=== PATIENT | female | born 1960 ===

== ENCOUNTER 2017-05-12 20:12 | Emergency (ER) | payer OTHER ==
[~2017-05-12] VITALS: Ht 172.7 cm; Wt 75.0 kg
[2017-05-12 20:15] VITALS: BP 162/74; PULSE 88; RESP 16; TEMP 98.9; O2SAT 98
--- NOTE | 2017-05-12 20:51 | PD ---
Physical Exam Time Seen by Provider: 20:50 Narrative 56 y/o female here for evaluation of nausea, vomiting, worse with meals, for 2.5 months, worse today. Generalized stomach "cramps" intermittently for 2.5 months as well. Vital signs reviewed. Seen at triage desk. Awaiting bed placement. Data Data Last Documented VS Vital Signs Date Time Temp Pulse Resp B/P Pulse Ox O2 Delivery O2 Flow Rate FiO2 05/12/17 20:15 98.9 88 16 162/74 98 MDM Medical Record Reviewed: Yes Supervised Visit with ALLISON: Jamir Manzo May 12, 2017 20:51
[2017-05-12] MEDS ORDERED: ATOR10TA15 PO (22:12)
[2017-05-12] MEDS ORDERED: LISI20TA3 PO (22:12)
[2017-05-12] MEDS ORDERED: SULF1TAB23 PO (22:12)
[2017-05-12] MEDS ORDERED: PROZ40CA PO (22:13)
--- NOTE | 2017-05-12 22:19 | PD ---
HPI Chief Complaint: GI Complaint Time Seen by Provider: 22:01 Travel History International Travel<30 days: No Contact w/Intl Traveler<30days: No Traveled to known affect area: No History of Present Illness HPI Patient is a 56-year-old female presents emergency Department with an evolving abdominal pain history over the past 2 and half months. Patient states initially started with some nausea vomiting and diarrhea and she thought she would get over it and tough it out. Then she stated she had a kidney stone which did not require any intervention and she was fairly certain this is what it was so she never went to the hospital for this either. She states that now over the past week her nausea has been getting significantly worse and she thinks something is wrong. She states that she has a history of diverticulitis and hemicolectomy and wants to make sure nothing bad is starting to happen again. She denies any fever. Does endorse some nonbloody nonbilious vomiting as well as some non-bloody and non-melenous loose stool. PFSH Past Medical History Diminished Hearing: No Hypertension: Yes Kidney Stones: Yes ?: Not Tubal Ligation: Yes Past Surgical History Abdominal Surgery: Yes (BOWEL OBS. PARTIAL REMOVAL OF COLON) Hysterectomy: Yes (PARTIAL) Social History Alcohol Use: Yes ([facility]) Tobacco Use: No (QUIT IN 1983) Substance Use: No Allergies-Medications (Allergen,Severity, Reaction): Coded Allergies: Cipro (Verified Allergy, Intermediate, 05/12/17) Macrobid (Verified Allergy, Intermediate, 05/12/17) Iodine (Verified Allergy, Unknown, 05/12/17) Reported Meds & Prescriptions Reported Meds & Active Scripts Active Zofran Odt (Ondansetron Odt) 4 Mg Tab 4 Mg SL Q6HR PRN Reported Prozac (Fluoxetine HCl) 40 Mg Cap 40 Mg PO DAILY Atorvastatin (Atorvastatin Calcium) 10 Mg Tab 10 Mg PO HS Lisinopril-Hctz 20-25 Mg Tab 1 Tab PO DAILY Sulfamethoxazole-Trimethoprim 800-160 Mg Tab 1 Tab PO BID Review of Systems Except as stated in HPI: all other systems reviewed are Neg Physical Exam Narrative GENERAL: Well-developed well-nourished, no obvious distress. SKIN: Focused skin assessment warm/dry. HEAD: Atraumatic. Normocephalic. EYES: Pupils equal and round. No scleral icterus. No injection or drainage. ENT: No nasal bleeding or discharge. Mucous membranes pink and moist. NECK: Trachea midline. No JVD. CARDIOVASCULAR: Regular rate and rhythm. No murmur appreciated. RESPIRATORY: No accessory muscle use. Clear to auscultation. Breath sounds equal bilaterally. GASTROINTESTINAL: Abdomen soft, non-tender, nondistended. Hepatic and splenic margins not palpable. No rebound no percussive tenderness. Bowel sounds normal to hyperactive. Well-healed surgical scars. MUSCULOSKELETAL: No obvious deformities. No clubbing. No cyanosis. No edema. NEUROLOGICAL: Awake and alert. No obvious cranial nerve deficits. Motor grossly within normal limits. Normal speech. PSYCHIATRIC: Appropriate mood and affect; insight and judgment normal. Data Data Last Documented VS Vital Signs Date Time Temp Pulse Resp B/P Pulse Ox O2 Delivery O2 Flow Rate FiO2 05/12/17 23:54 18 98 Room Air 05/12/17 23:54 70 135/68 05/12/17 20:15 98.9 Orders Complete Blood Count With Diff (05/12/17 23:25) Comprehensive Metabolic Panel (05/12/17 23:25) Lipase (05/12/17 23:25) Urinalysis - C+S If Indicated (05/12/17 23:25) Iv Access Insert/Monitor (05/12/17 23:25) Ecg Monitoring (05/12/17 23:25) Oximetry (05/12/17 23:25) Sodium Chlor 0.9% 1000 Ml Inj (Ns 1000 M (05/12/17 23:25) Sodium Chloride 0.9% Flush (Ns Flush) (05/12/17 23:30) Ketorolac Inj (Toradol Inj) (05/12/17 23:30) Ct Abd/Pel W/O Iv Contrast (05/12/17 ) Ondansetron Inj (Zofran Inj) (05/13/17 00:00) Urine Culture (05/12/17 23:35) Labs Laboratory Tests Test 05/12/17 05/12/17 23:35 23:59 White Blood Count 9.4 TH/MM3 Red Blood Count 4.66 MIL/MM3 Hemoglobin 14.3 GM/DL Hematocrit 41.8 % Mean Corpuscular Volume 89.7 FL Mean Corpuscular Hemoglobin 30.7 PG Mean Corpuscular Hemoglobin 34.2 % Concent Red Cell Distribution Width 14.1 % Platelet Count 253 TH/MM3 Mean Platelet Volume 8.7 FL Neutrophils (%) (Auto) 63.8 % Lymphocytes (%) (Auto) 28.5 % Monocytes (%) (Auto) 7.1 % Eosinophils (%) (Auto) 0.2 % Basophils (%) (Auto) 0.4 % Neutrophils # (Auto) 6.0 TH/MM3 Lymphocytes # (Auto) 2.7 TH/MM3 Monocytes # (Auto) 0.7 TH/MM3 Eosinophils # (Auto) 0.0 TH/MM3 Basophils # (Auto) 0.0 TH/MM3 CBC Comment DIFF FINAL Differential Comment Urine Color YELLOW Urine Turbidity HAZY Urine pH 6.5 Urine Specific [place] 1.026 Urine Protein 100 mg/dL Urine Glucose (UA) NEG mg/dL Urine Ketones 10 mg/dL Urine Occult Blood NEG Urine Nitrite NEG Urine Bilirubin NEG Urine Urobilinogen 2.0 MG/DL Urine Leukocyte Esterase TRACE Urine RBC 2 /hpf Urine WBC 9 /hpf Urine Squamous Epithelial 2 /hpf Cells Urine Mucus FEW /lpf Microscopic Urinalysis Comment CULTURE INDICATED Sodium Level 139 MEQ/L Potassium Level 3.2 MEQ/L Chloride Level 103 MEQ/L Carbon Dioxide Level 27.2 MEQ/L Anion Gap 9 MEQ/L Blood Urea Nitrogen 20 MG/DL Creatinine 1.91 MG/DL Estimat Glomerular Filtration 27 ML/MIN Rate Random Glucose 97 MG/DL Calcium Level 8.2 MG/DL Total Bilirubin 0.9 MG/DL Aspartate Amino Transf 33 U/L (AST/SGOT) Alanine Aminotransferase 51 U/L (ALT/SGPT) Alkaline Phosphatase 79 U/L Total Protein 8.8 GM/DL Albumin 3.8 GM/DL Lipase 104 U/L [facility] Medical Decision Making Medical Screen Exam Complete: Yes Emergency Medical Condition: Yes Differential Diagnosis Bowel obstruction, acute abdomen unlikely, electrolyte abnormality, Crohn's disease, short gut syndrome. Narrative Course Patient roomed in emergency department, appears as though she's had waxing and waning abdominal symptoms for some time. CAT scan of her abdomen as well as basic labs of been ordered. I reviewed the patient's basic labs which did show an elevated creatinine to 1.9 without previous for comparison. The patient is cautioned about her creatinine and she would like to follow this up with her regular physician. I think this is reasonable at this time. Discussed abstinence from ibuprofen and push by mouth hydration. Will be placed on Zofran at home. She is stable for discharge. Diagnosis Primary Impression: Abdominal pain Qualified Code: R10.9 - Abdominal pain, unspecified abdominal location Med/Other Pt SpecificInfo: Prescription(s) given Scripts Ondansetron Odt (Zofran Odt)4 Mg Tab4 Mg SL Q6HR PRN (Nausea/Vomiting) #20 TAB Ref 0 Prov:Enoc Chase MD 05/13/17 Disposition: 01 DISCHARGE HOME Condition: Stable Enoc Chase MD May 12, 2017 22:19
[2017-05-12] MEDS ORDERED: SODIUM CHLOR 0.9% 1000 ML INJ 1,000 ML IV SCH (23:25)
[2017-05-12] MEDS ORDERED: SODIUM CHLORIDE 0.9% FLUSH 10 ML FLUSH IV FLUSH PRN (23:30)
[2017-05-12] MEDS ORDERED: KETOROLAC TROMETHAMINE 30 MG/ML (IVP) VIAL IV PUSH ONE (23:30)
[2017-05-12 23:54] VITALS: BP 135/68; PULSE 70; RESP 18; O2SAT 98; O2SAT 99
[2017-05-12 23:57] LABS: BLOOD, URINE NEG (NEG); COMMENT (UR) CULTURE INDICATED; CULTURE IF INDICATED CULTURE INDICATED; GLUCOSE,URINE NEG (NEG); KETONE, URINE 10 mg/dL (NEG); MUCUS URINE FEW /lpf (OCC); NITRITE,URINE NEG (NEG); PH, URINE 6.5 (5.0-8.5); SQUAMOUS EPITHELIAL CELL URINE 2 /hpf (0-5); URINE COLOR YELLOW (YELLW/STRAW)
[2017-05-13] MEDS ORDERED: ONDANSETRON HCL 4 MG/2 ML VIAL IV PUSH ONE
[2017-05-13 00:18] LABS: ALKALINE PHOSPHATASE 79 U/L (45-117); TOTAL BILIRUBIN ADULT 0.9 MG/DL (0.2-1.0)
[2017-05-13 00:20] LABS: BASOPHIL % 0.4 % (0.0-2.0); EOSINOPHIL % 0.2 % (0.0-4.0); HEMATOCRIT 41.8 % (35.0-46.0); HEMO FLAGS DIFF FINAL; LYMPH % 28.5 % (9.0-44.0); LYMPHOCYTE # 2.7 TH/MM3 (1.0-4.8); MEAN CELL VOLUME 89.7 FL (80.0-100.0); MEAN CORPUSCULAR HEMOGLOBIN 30.7 PG (27.0-34.0); MEAN CORPUSCULAR HGB CONC 34.2 % (32.0-36.0); MONO % 7.1 % (0.0-8.0); NEUT % 63.8 % (16.0-70.0); PLATELET COUNT 253 TH/MM3 (150-450); RED BLOOD COUNT 4.66 MIL/MM3 (4.00-5.30); RED CELL DISTRIBUTION WIDTH 14.1 % (11.6-17.2); WHITE BLOOD COUNT 9.4 TH/MM3 (4.0-11.0)
[2017-05-13 01:05] LABS: ALT (GPT) 51 U/L (10-53); ANION GAP 9 MEQ/L (5-15); AST (GOT) 33 U/L (15-37); BICARBONATE 27.2 MEQ/L (21.0-32.0); BLOOD UREA NITROGEN 20 MG/DL (7-18); CHLORIDE 103 MEQ/L (98-107); GLOMERULAR FILTRATION RATE 27 ML/MIN (>89); POTASSIUM 3.2 MEQ/L (3.5-5.1); SODIUM (NA) 139 MEQ/L (136-145)
--- NOTE | 2017-05-13 01:21 | RADRPT ---
EXAM DATE/TIME: 05/13/2017 01:02 [place] COMPARISON: No previous studies available for comparison. INDICATIONS : Abdomen pain with nausea. ORAL CONTRAST: No oral contrast ingested. RADIATION DOSE: 8.84 CTDIvol (mGy) MEDICAL HISTORY : Diverticulitis. Renal calculi. Hypertension. SURGICAL HISTORY : Colon resection. Hysterectomy.Tubal ligation. ENCOUNTER: Initial ACUITY: 2 months PAIN SCALE: 4/10 LOCATION: Bilateral abdomen TECHNIQUE: Volumetric scanning of the abdomen and pelvis was performed. Using automated exposure control and ad justment of the mA and/or kV according to patient size, radiation dose was kept as low as reasonably achievable to obtain optimal diagnostic quality images. DICOM format image data is available electro nically for review and comparison. FINDINGS: There are degenerative changes of the spine noted. No pleural or pericardial effusions. There is a hi atal hernia identified containing fat of the esophageal hiatus. There are scattered cysts in the live r. Gallbladder, spleen, pancreas, adrenal glands are unremarkable. There are 2 punctate nonobstructin g calculi right lower pole kidney on image 39 and a punctate right midpole calculus, nonobstructing. Nonobstructing 2 mm calculus left upper pole kidney and 2 punctate calculi left mid pole kidney, nono bstructing. The left mid to lower pole a 4.2 mm nonobstructing stone is present on image 34 and there is a 3 mm calculus on image 36 of the left lower pole. No hydronephrosis or hydroureter. Urinary hung dder unremarkable. Patient is status post hysterectomy. No evidence of bowel obstruction. The appendi x is normal. Scattered atherosclerotic calcifications. CONCLUSION: 1. Hiatal hernia containing fat. 2. Atherosclerosis. 3. Bilateral nonobstructing renal calculi. 4. There are 2 cysts noted in the liver. This includes a 1.3 cm anterior right lobe and a 1.9 cm post erior right lobe cyst. 5. No inflammatory changes are seen. Miller Saenz MD on May 13, 2017 at 1:17 Board Certified Radiologist. This report was verified electronically.
[2017-05-13] MEDS ORDERED: ZOFR4TAB3 SL ×2 (01:37→01:57)
== END 2017-05-13 02:37 | disposition home or self-care (01) ==
LOC: NEPD 20:12
DX: R10.9 Unspecified abdominal pain (principal); R11.2 Nausea with vomiting, unspecified; R19.7 Diarrhea, unspecified; I10 Essential (primary) hypertension; Z79.899 Other long term (current) drug therapy; Z88.1 Allergy status to other antibiotic agents; Z88.8 Allergy status to other drugs, medicaments and biological substances
CPT/HCPCS: 74176; 80053; 81001; 83690; 85025; 87086; 96361; 96374; 96375; 99285; J1885; J2405; J7030